=== PATIENT | female | born 1980 | race Caucasian/White ===

== ENCOUNTER 2021-11-14 09:57 | Emergency (ER) | payer OTHER, SELFPAY ==
[2021-11-14 10:15] VITALS: BP 141/81; PULSE 97; RESP 16; TEMP 36.6; O2SAT 99
--- NOTE | 2021-11-14 10:36 | ED.GENADULT ---
HPI - General Adult General Chief complaint: Abdominal Pain Stated complaint: lower abd cramping Time Seen by Provider: 11/14/21 10:36 Source: patient Mode of arrival: ambulatory Limitations: no limitations History of Present Illness HPI narrative: Odette Mcnair is a 41 yo female with no PMH who [facility] with lower abdominal pain that is bilateral she states it started about a week and a half ago to 2 weeks ago and has gradually gotten worse and is now almost unbearable Related Data Home Medications Medication Instructions Recorded Confirmed cyclobenzaprine 10 mg tablet 10 mg PO TID 09/23/19 09/25/19 Allergies Allergy/AdvReac Type Severity Reaction Status Date / Time No Known Allergies Allergy Unverified 01/29/20 13:25 Review of Systems Review of Systems: CONSTITUTIONAL: Denies fever, chills, sweats. EYES: Denies visual changes, redness, discharge. ENT: Denies rhinorrhea, congestion, sore throat, otalgia. CARDIOVASCULAR: Denies chest pain, palpitations, edema. RESPIRATORY: Denies dyspnea, wheezing, cough GASTROINTESTINAL: Has abdominal pain, nausea, vomiting, diarrhea. GENITOURINARY: Denies dysuria, hematuria, abnormal discharge SKIN: Denies rash or itching. NEUROLOGIC: Denies numbness, or focal weakness. PSYCHIATRIC: Denies anxiety or depression. [facility] Family History Family History Father Family history of gout Patient's father is in good health Cerebrovascular accident Social History Social History Smoking status: Never smoker Alcohol intake: current Comments -At time of signature, I agree with nursing past medical, surgical, social and family history. There is no relevant family history pertinent to the presenting complaint. Urine dipstick negative Exam Narrative: GENERAL: This is a well-nourished, well-developed patient, in moderate distress. HEAD: normocephalic, atraumatic. EYES:. Sclera clear/white. Vision is grossly intact. EARS: External ears normal,. Hearing grossly intact. NOSE: External nose normal without nasal discharge, nares without redness, no rhinorrhea. THROAT: Mucous membranes moist, NECK: Neck supple, non-tender CARDIOVASCULAR: Regular rate and rhythm without murmurs, gallops, or rubs. RESPIRATORY: Clear to auscultation. Breath sounds equal bilaterally. No wheezes, rales, or rhonchi. GASTROINTESTINAL: Abdomen soft, lower abdominal bilateral tenderness that is constant and worsening SKIN: warm, intact with no suspicious lesions or rash, good texture and turgor. NEURO: awake, alert, and oriented to person, place and time. There were no obvious focal neurologic abnormalities. Steady gait EXTREMITIES: Normal range of motion. BACK: Nontender without deformity Course Course Emergency Course: Patient here with bilateral lower abdominal pain that started 2 weeks ago and is gradually worsened to the point that she states today it is almost unbearable Patient was referred to [facility] however patient called her primary care physician while in the room; primary care physician staff wants her to go see her [facility] who happens to be in [place]; patient chooses to try to follow-up with [employer] [employer] first. given reasons to go to the ER between now and the time she can see her OB which included fever worsening abdominal pain nausea and vomiting Level of Care: Express Care Visit Vital Signs Vital signs: Vital Signs Temperature 97.9 F 11/14/21 10:15 Pulse Rate 97 11/14/21 10:15 Respiratory Rate 16 11/14/21 10:15 Blood Pressure 141/81 H 11/14/21 10:15 Pulse Oximetry 99 11/14/21 10:15 Temperature 97.9 F 11/14/21 10:15 Pulse Rate 97 11/14/21 10:15 Respiratory Rate 16 11/14/21 10:15 Blood Pressure 141/81 H 11/14/21 10:15 Pulse Oximetry 99 11/14/21 10:15 Medical Decision Making Differential Diagnosis Differential Diagnosis: Yes really
== END 2021-11-14 10:59 | disposition other institution (70) ==
PROVIDERS: Emergency Provider Nurse Practitioner; PCP Internal Medicine
DX: R10.31 Right lower quadrant pain (principal); R10.32 Left lower quadrant pain; Z86.718 Personal history of other venous thrombosis and embolism
CPT/HCPCS: 81003; 99212; G0463